=== PATIENT | female | born 1980 | race Two or more races ===

== ENCOUNTER 2025-02-25 00:33 | Emergency (ER) | payer OTHER ==
[~2025-02-25] VITALS: Ht 149.9 cm; Wt 54.0 kg
[2025-02-25] MEDS ORDERED: 0.9 % SODIUM CHLORIDE 2,000 ML IV STA (01:54)
[2025-02-25] MEDS ORDERED: MORPHINE SULFATE 4 MG/ML CARTRIDGE IV STA (01:55)
[2025-02-25] MEDS ORDERED: ONDANSETRON HCL 2 MG/ML VIAL IV STA (02:03)
[2025-02-25] MEDS ORDERED: ONDANSETRON HCL 2 MG/ML VIAL ONE (02:04)
[2025-02-25 03:09] LABS: BASO % 0.0 % (0.1-1.2); EOS # 0.00 (0.04-0.54); EOS % 0.0 % (0.7-7.0); LYMPH # 0.49 (1.18-3.74); LYMPH % 11.4 % (19.3-53.1); MEAN PLATELET VOLUME 11.20 fl (9.4-12.4); MONO # 0.16 (0.24-0.82); MONO % 3.7 % (4.7-12.5); NEUT # 3.62 (1.56-6.13); NEUT % 84.7 % (34.0-71.1); RED CELL DISTRIBUTION WIDTH 11.9 % (11.6-14.4)
[2025-02-25 03:12] LABS: INR < 0.93
[2025-02-25 03:16] LABS: BILIRUBIN TOTAL 0.55 mg/dL (0.3-1.2); BILIRUBIN,CONJUGATED 0.19 mg/dL (0.0-0.2)
[2025-02-25 03:29] LABS: ALT/SGPT 42.0 U/L (12-78); AST/SGOT 31.0 U/L (15-37); BILIRUBIN TOTAL 0.59 mg/dL (0.3-1.2); BUN CREA RATIO 32.0 (7.0-25.0); CREATININE SERUM 0.97 mg/dL (0.55-1.02); GFR 62.68; GLOBULINA 4.1 G/DL (2.4-3.5); GLUCOSE FASTING 124.0 mg/dL (65-100); OSMOLALITY SERUM 278.0 MOSM/KG (275-295)
[2025-02-25] MEDS ORDERED: TRAMADOL HCL 50 MG TABLET PO STA (04:04)
== END 2025-02-25 08:08 | disposition home or self-care (01) ==
LOC: ER 00:33
DX: B34.9 Viral infection, unspecified (principal); R10.9 Unspecified abdominal pain; R07.9 Chest pain, unspecified